=== PATIENT | male | born 1960 | race Caucasian/White ===

== ENCOUNTER → 2016-08-14 | Outpatient (CLI) | payer BC ==
[~2016-08-14] VITALS: Ht 172.7 cm; Wt 89.4 kg
[~2016-08-14] MED LIST: OXYC-57 PO; PROM25TA PO; SERT-234 PO
[2016-08-14 16:09] VITALS: BP 110/58; PULSE 60; Ht 172.7 cm; Wt 89.4 kg
== END | disposition home or self-care (01) ==
LOC: C.NEUR 13:33
PROVIDERS: ATTEND Internal Medicine Pulmonary Disease
DX: G47.30 Sleep apnea, unspecified (principal)